=== PATIENT | female | born 1995 | race African-American/Black ===

== ENCOUNTER 2019-12-29 04:21 | Emergency (ER) | payer MEDICAID ==
[~2019-12-29] VITALS: Ht 157.5 cm; Wt 64.0 kg
[2019-12-29 04:28] VITALS: BP 133/93
== END 2019-12-29 06:19 | disposition left against medical advice (07) ==
LOC: ER 04:21
DX: M79.644 Pain in right finger(s) (principal); Z53.21 Procedure and treatment not carried out due to patient leaving prior to being seen by health care provider